=== PATIENT | female | born 1970 | race African-American/Black ===

== ENCOUNTER 2016-10-30 01:35 | Emergency (ER) | payer OTHER ==
--- NOTE | ~2016-10-30 | CR229 ---
[facility] A Service of [facility] & [facility] RADIOLOGY TEXT RESULTS PATIENT: DMITRIY VILLEGAS LOCATION: [facility] : 68 UNIT #: [id number] AGE: [address]: Ciara Ramirez APRN SEX: F ORDER DR: [id number] [facility] [address] [place], [place] [address] [id number] E MR#: [id number] Acc #: [id number] NAME: DMITRIY VILLEGAS : 1970 SEX: F STUDY DATE/TIME: 10/30/2016 6:20 UNIT: [facility] ROOM: STUDY DESCRIPTION: CR Shoulder Min 2 View Lt Attending Physician: Ciara Ramirez A.P.R.N. Ordering Physician: Ciara Ramirez A.P.R.N. Primary Care Physician: Eliel Mason M.D. MEDICAL IMAGING REPORT This report is preliminary unless electronic signature is present EXAM Left shoulder, 3 views. INDICATIONS Shoulder pain today. COMPARISON No comparisons. FINDINGS No fracture or dislocation. There is some mild narrowing of the AC joint. The glenohumeral joint is intact. IMPRESSION Mild narrowing of the AC joint. Otherwise, unremarkable. Dictated by... Kade Damon M.D. THIS IS AN ELECTRONICALLY VERIFIED REPORT Kade Damon M.D. at 10/30/2016 3:56 PM BUD/yuri TD: 10/30/2016 15:34 JOB #: [id number] MEDICAL IMAGING REPORT Page 1 of 1 COPY
--- NOTE | ~2016-10-30 | CR141 ---
[facility] A Service of [facility] & [facility] RADIOLOGY TEXT RESULTS PATIENT: DMITRIY VILLEGAS LOCATION: [facility] : 68 UNIT #: [id number] AGE: [address]: Ciara Ramirez APRN SEX: F ORDER DR: [id number] [facility] [address] [place], [place] [address] [id number] E MR#: [id number] Acc #: [id number] NAME: DMITRIY VILLEGAS : 1970 SEX: F STUDY DATE/TIME: 10/30/2016 6:17 UNIT: [facility] ROOM: STUDY DESCRIPTION: CR Hand Min 3 Views Lt Attending Physician: Ciara Ramirez A.P.R.N. Ordering Physician: Ciara Ramirez A.P.R.N. Primary Care Physician: Eliel Mason M.D. MEDICAL IMAGING REPORT This report is preliminary unless electronic signature is present EXAM Left hand 3 views INDICATION Left hand pain today. FINDINGS There is no fracture or dislocation. Joint spaces are preserved. IMPRESSION Negative. Dictated by... Kade Damon M.D. THIS IS AN ELECTRONICALLY VERIFIED REPORT Kade Damon M.D. at 10/30/2016 3:56 PM BUD/corbin TD: 10/30/2016 15:20 JOB #: [id number] MEDICAL IMAGING REPORT Page 1 of 1 COPY
--- NOTE | ~2016-10-30 | CR93 ---
[facility] A Service of [facility] & [facility] RADIOLOGY TEXT RESULTS PATIENT: DMITRIY VILLEGAS LOCATION: [facility] : 68 UNIT #: [id number] AGE: [address]: Ciara Ramirez APRN SEX: F ORDER DR: [id number] [facility] [address] [place], [place] [address] [id number] E MR#: [id number] Acc #: [id number] NAME: DMITRIY VILLEGAS : 1970 SEX: F STUDY DATE/TIME: 10/30/2016 6:18 UNIT: [facility] ROOM: STUDY DESCRIPTION: CR Elbow Min 3 Views Lt Attending Physician: Ciara Ramirez A.P.R.N. Ordering Physician: Ciara Ramirez A.P.R.N. Primary Care Physician: Eliel Mason M.D. MEDICAL IMAGING REPORT This report is preliminary unless electronic signature is present EXAM Left elbow, 3 views. INDICATIONS Elbow pain today. COMPARISON No comparisons. FINDINGS There is no joint effusion. There is no evidence for fracture or dislocation. IMPRESSION Negative. Dictated by... Kade Damon M.D. THIS IS AN ELECTRONICALLY VERIFIED REPORT Kade Damon M.D. at 10/30/2016 3:56 PM BUD/yuri TD: 10/30/2016 15:27 JOB #: [id number] MEDICAL IMAGING REPORT Page 1 of 1 COPY
--- NOTE | ~2016-10-30 | CR132 ---
[facility] A Service of [facility] & [facility] RADIOLOGY TEXT RESULTS PATIENT: DMITRIY VILLEGAS LOCATION: [facility] : 68 UNIT #: [id number] AGE: [address]: Ciara Ramirez APRN SEX: F ORDER DR: [id number] [facility] [address] [place], [place] [address] [id number] E MR#: [id number] Acc #: [id number] NAME: DMITRIY VILLEGAS : 1970 SEX: F STUDY DATE/TIME: 10/30/2016 6:25 UNIT: [facility] ROOM: STUDY DESCRIPTION: CR Forearm 2 View Lt Attending Physician: Ciara Ramirez A.P.R.N. Ordering Physician: Ciara Ramirez A.P.R.N. Primary Care Physician: Eliel Mason M.D. MEDICAL IMAGING REPORT This report is preliminary unless electronic signature is present EXAM Left forearm, 2 views. INDICATIONS Forearm pain today. COMPARISON No comparisons. FINDINGS No fracture or malalignment. IMPRESSION Negative. Dictated by... Kade Damon M.D. THIS IS AN ELECTRONICALLY VERIFIED REPORT Kade Damon M.D. at 10/30/2016 3:56 PM BUD/yuri TD: 10/30/2016 15:33 JOB #: [id number] MEDICAL IMAGING REPORT Page 1 of 1 COPY
[~2016-10-30 01:35] MED LIST: ABILIFY PO; ALBUTEROL17 GM INH; ALLERGY10 MG PO; AMBIEN PO; ANASTROZOLE1 MG PO; ASPIRINEC PO; ATARAX PO; ATRAC-TAIN142 GM EXT; AUGMENTIN PO; AUGMENTIN875 MG PO; BACTROBAN22 GM TP; CELEXA PO; CITALOPRAM HBR40 MG PO; CLARITIN D PO; COLACE PO; COLACE50 MG PO; COMPAZINE10 M1 PO; DARVOCET-N 1001 TAB; DEPRESSION MED PO; DEXAMETHASONE4 MG PO; DIAZEPAM; DIAZEPAM PO; DOXEPIN HCL25 MG PO; EC-NAPROSYN500 MG PO; FELDENE20 MG PO; FERRO-TIME325 MG PO; FIBER TABLETS; FLEXERIL PO; FLEXERIL10 M1 PO; FLEXERIL10 MG PO; FUROSEMIDE40 MG PO; IBUPROFEN PO; IRON1 TAB PO; KEFLEX PO; KLONOPIN PO; LASIX PO; LASIX20 MG PO; LEVAQUIN PO; LEXAPRO PO; LOPRESSOR PO; LYRICA100 MG PO; MED; MEDROL PO; METFORMIN HCL500 M1 PO; MUCINEX; MUCINEX DM1 TAB.SR . PO; NAPROXEN; NEURONTIN PO; NEURONTIN300 MG PO; NORCO 10/325 TA1 TAB PO; OMEPRAZOLE20 M2 PO; OXYCODONE; PERCOCET 5-3251 TAB PO; PERCOCET 51 UDTAB 5/ PO; PERCOCET5/325 PO; PHENERGAN PO; POTASSIUM; POTASSIUM CHLO10 ME1 PO; PRILOSEC PO; PRILOSEC20 MG PO; REGLAN PO; ROBAXIN PO; SARNA EXT; SEROQUEL PO; SIMVASTATIN20 MG PO; SWISH AND SWALLOW; TUSSIONEX PENN473 ML PO; ULTRAM PO; VALTREX PO; VICODIN 5/500 T1 TAB PO; VOLTAREN75 MG PO; WELLBUTRIN PO; WELLBUTRIN XL PO; ZANTAC PO; ZESTRIL40 MG PO; ZITHROMAX PO; ZOCOR20 MG PO; [UNRECOGNIZED DRUG - OTHER]; [UNRECOGNIZED DRUG - OTHER] OT; [UNRECOGNIZED DRUG - OTHER] PO
== END 2016-10-30 07:15 | disposition home or self-care (01) ==
LOC: CED 01:35
DX: S46.912A Strain of unspecified muscle, fascia and tendon at shoulder and upper arm level, left arm, initial encounter (principal); S63.502A Unspecified sprain of left wrist, initial encounter; F17.210 Nicotine dependence, cigarettes, uncomplicated; J45.909 Unspecified asthma, uncomplicated; J44.9 Chronic obstructive pulmonary disease, unspecified; K21.9 Gastro-esophageal reflux disease without esophagitis; F32.9 Major depressive disorder, single episode, unspecified; F41.9 Anxiety disorder, unspecified; Z88.8 Allergy status to other drugs, medicaments and biological substances; Z91.040 Latex allergy status; Z91.030 Bee allergy status; Z91.038 Other insect allergy status; Y04.0XXA Assault by unarmed brawl or fight, initial encounter; Y92.009 Unspecified place in unspecified non-institutional (private) residence as the place of occurrence of the external cause; Y07.499 Other family member, perpetrator of maltreatment and neglect
CPT/HCPCS: 29125; 73030; 73080; 73090; 73130; 99284

== ENCOUNTER 2017-01-04 03:00 | Observation (INO) | payer MEDICARE, OTHER ==
[~2017-01-04] VITALS: Ht 160 cm; Wt 123.4 kg
--- NOTE | ~2017-01-04 | XA198 ---
[facility] A Service of [facility] RADIOLOGY TEXT RESULTS PATIENT: DMITRIY VILLEGAS LOCATION: A : 68 UNIT #: [id number] AGE: [address]: Anabela Villarreal MD SEX: F ORDER DR: [id number] [address] [address] [id number] I MR#: [id number] Acc #: [id number] NAME: DMITRIY VILLEGAS. : 1970 SEX: F STUDY DATE/TIME: 01/05/2017 10:45 UNIT: [facility] ROOM: [facility] STUDY DESCRIPTION: XA Spinal Puncture Attending Physician: Anabela Villarreal M.D. Ordering Physician: Anabela Villarreal M.D. Primary Care Physician: Eliel Mason M.D. MEDICAL IMAGING REPORT This report is preliminary unless electronic signature is present PROCEDURE Fluoroscopically guided lumbar puncture INDICATIONS Headaches. The fluoro time was 0.6 minutes. The reference air kerma is 87 mg. The risks, benefits and alternatives of the procedure were discussed with the patient, informed consent was obtained. Procedure room time-out was performed, confirming correct patient and procedure. All elements of maximum sterile barrier technique utilized, according to guidelines appropriate for the procedure. TECHNIQUE/FINDINGS Skin overlying the lower lumbar spine was prepped and draped usual sterile fashion with Betadine and 1% lidocaine utilized to anesthetize the skin and underlying subcutaneous tissues. Next, under fluoroscopic guidance, a 20-gauge needle was advanced into the subarachnoid space at the L2 level. 12 mL of clear CSF was collected and sent to the lab. The needle was removed and a sterile dressing was applied. No immediate complications. IMPRESSION Technically successful fluoroscopically guided lumbar puncture. Dictated by... Kade Damon M.D. THIS IS AN ELECTRONICALLY VERIFIED REPORT Kade Damon M.D. at 01/07/2017 4:02 PM ARS/psc [facility] A Service of [facility] RADIOLOGY TEXT RESULTS PATIENT: DMITRIY VILLEGAS LOCATION: [facility] 217-01 : 68 UNIT #: [id number] AGE: [address]: Anabela Villarreal MD SEX: F ORDER DR: TD: 01/06/2017 02:42 JOB #: [id number] MEDICAL IMAGING REPORT Page 1 of 1 COPY
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
--- NOTE | ~2017-01-04 | CT71 ---
[facility] A Service of [facility] RADIOLOGY TEXT RESULTS PATIENT: DMITRIY VILLEGAS LOCATION: [facility] : 68 UNIT #: [id number] AGE: [address]: Anabela Villarreal MD SEX: F ORDER DR: [id number] [facility] [address] [place], [place] [address] [id number] I MR#: [id number] Acc #: [id number] NAME: DMITRIY VILLEGAS : 1970 SEX: F STUDY DATE/TIME: 01/04/2017 5:33 UNIT: [facility] ROOM: [facility] STUDY DESCRIPTION: CT Head Wo Contrast Attending Physician: Anabela Villarreal M.D. Ordering Physician: Heriberto Beatty D.O. Primary Care Physician: Eliel Mason M.D. MEDICAL IMAGING REPORT This report is preliminary unless electronic signature is present EXAM CT head without contrast. INDICATIONS Headache today. PROCEDURE Unenhanced CT of the head. This CT exam was performed with one or more of the following radiation dose reduction techniques: automatic exposure control, adjustment of mA and/or kV according to patient size, and iterative reconstruction. COMPARISON 04/23/2011 FINDINGS No acute hemorrhage, abnormal mass effect, extraaxial fluid collection, or hydrocephalus. No depressed calvarial fracture. Paranasal sinuses and mastoid air cells are clear. IMPRESSION No acute intracranial findings. Dictated by... Livan Daugherty M.D. THIS IS AN ELECTRONICALLY VERIFIED REPORT Livan Daugehrty M.D. at 01/04/2017 9:52 PM EED/odalys TD: 01/04/2017 13:52 JOB #: [id number] [facility] A Service [facility] RADIOLOGY TEXT RESULTS PATIENT: DMITRIY VILLEGAS LOCATION: [facility] : 68 UNIT #: [id number] AGE: [address]: Anabela Villarreal MD SEX: F ORDER DR: MEDICAL IMAGING REPORT Page 1 of 1 COPY
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
--- NOTE | ~2017-01-04 | BMI ---
[facility] Nutrition Therapy DATE: 01/05/17 Patient: DMITRIY VILLEGAS Physician: JENIFER Address: [address] Room/Bed: [address] [place] [address], Zip: [place] [address] Admit Date: 01/04/17 Date of : [birth year] Height: 5 3 Weight: 272 123.37 HIGH BMI NOTE: DX: 46 Y.O. FEMALE ADMITTED FOR HEADACHE ANTHROPOMETRICS: 5'3", WT: 271# (123 KG), BMI: 48.0 DIET: CC+HH RECOMMENDATIONS: 1. CONTINUE CURRENT DIET ORDER ABOVE TO PROMOTE GRADUAL WEIGHT LOSS TOWARDS HEALTHY BMI (19.0-25.0) OR +/-10%IBW RD WILL F/U PER PROTOCOL Respectfully, JAMIE RAHMAN MS, RD, LD [facility] Nutrition[facility] cc: client file
[2017-01-04 05:26] LABS: BASOPHIL% 0.6 % (0-2.5); EOSINOPHIL# 0.1 X10e3 (0-0.7); EOSINOPHIL% 1.6 % (0.0-7.0); HEMATOCRIT 41.7 % (35.0-45.0); HEMOGLOBIN 13.5 gm/dL (12.0-16.0); LYMPHOCYTE# 4.2 X10e3 (1.0-3.5); LYMPHOCYTE% 54.6 % (17.0-45.0); MEAN CELL VOLUME 81.4 FL (83-96); MEAN CORPUSCULAR HEMOGLOBIN 26.4 PG (28-34); MEAN CORPUSCULAR HGB CONC 32.5 g/dL (30-36); MEAN PLATELET VOLUME 7.5 FL (6.5-11.5); MONOCYTE# 0.5 X10e3 (0-1.0); MONOCYTE% 6.8 % (3.0-12.0); NEUTROPHIL# 2.8 X10e3 (1.5-7.1); NEUTROPHIL% 36.4 % (40-75); PLATELET COUNT 243 X10e3 (140-420); RED BLOOD COUNT 5.12 X10e (3.90-5.30); RED CELL DISTRIBUTION WIDTH 14.7 % (11.0-15.5); WHITE BLOOD COUNT 7.7 X10e3 (4.0-10.5)
[2017-01-04 05:30] LABS: DIFF IND YES
[2017-01-04 05:45] LABS: PARTIAL THROMBOPLASTIN TIME 25.5 SECONDS (23.5-31.3); PROTHROMBIN TIME (PATIENT) 10.6 SECONDS (10.0-11.7)
[2017-01-04 06:01] LABS: PLATELET ESTIMATE NORMAL (NORMAL); RBC NORMAL YES
[2017-01-04 06:09] LABS: CREATININE SERUM 0.8 mg/dL (0.6-1.4); GLOM FILT RATE Estimated 101.8 mL/min (>60); POTASSIUM 4.2 mmol/L (3.5-5.1)
[2017-01-04 06:27] LABS: URINE SOURCE CLEAN CATCH
[2017-01-04 06:33] LABS: URINE APPEARANCE CLEAR; URINE BILIRUBIN NEG (NEG); URINE BLOOD NEG (NEG); URINE COLOR YELLOW; URINE GLUCOSE NEG (NEG); URINE KETONE NEG (NEG); URINE LEUKOCYTE ESTERASE NEG (NEG); URINE NITRATE NEG (NEG); URINE PROTEIN NEG (NEG); URINE SPECIFIC GRAVITY 1.024 (1.003-1.035); URINE UROBILINOGEN 0.2 MG/DL (NEG)
[2017-01-04 06:36] LABS: CULTURE INDICATED? NO
[2017-01-04] MEDS ORDERED: GEODAN PO (09:10)
[2017-01-04] MEDS ORDERED: PRILOSEC PO (09:10)
[2017-01-04] MEDS ORDERED: ZYRTEC10 M2 PO (09:11)
[2017-01-04] MEDS ORDERED: CITALOPRAM HBR40 MG PO (09:11)
[2017-01-04] MEDS ORDERED: ZANAFLEX4 M1 PO (09:11)
[2017-01-04] MEDS ORDERED: DOXEPIN HCL100 M1 PO (09:13)
[2017-01-04] MEDS ORDERED: CALCIUM 600 +1 EA16 PO (09:13)
[2017-01-04] MEDS ORDERED: METFORMIN PO ×2 (09:14→09:33)
[2017-01-04] MEDS ORDERED: SINGULAIR PO (09:15)
[2017-01-04] MEDS ORDERED: PATADAY2.5 ML OU (09:15)
[2017-01-04] MEDS ORDERED: ALBUTEROL17 GM INH (09:16)
[2017-01-04] MEDS ORDERED: TOPAMAX PO (09:17)
[2017-01-04] MEDS ORDERED: AZELASTINE137 MCG/0. (09:20)
[2017-01-04] MEDS ORDERED: CALCIUM 600 +1 EAC2 PO (09:25)
[2017-01-05 05:29] LABS: HEMATOCRIT 41.1 % (35.0-45.0); HEMOGLOBIN 13.2 gm/dL (12.0-16.0); MEAN CELL VOLUME 81.7 FL (83-96); MEAN CORPUSCULAR HEMOGLOBIN 26.3 PG (28-34); MEAN CORPUSCULAR HGB CONC 32.2 g/dL (30-36); MEAN PLATELET VOLUME 7.9 FL (6.5-11.5); RED BLOOD COUNT 5.03 X10e (3.90-5.30); RED CELL DISTRIBUTION WIDTH 14.7 % (11.0-15.5); WHITE BLOOD COUNT 10.3 X10e3 (4.0-10.5)
[2017-01-05 13:17] LABS: GLUCOSE-CSF 73 mg/dL (50-80); PROTEIN-CSF 26 mg/dL (15-45)
[2017-01-05 15:52] LABS: CSF APPEARANCE CLEAR (CLEAR); CSF RBC 0 CMM (0); CSF TUBE NUMBER 3; CSF WBC 3 CMM (0-8); CSF XANTHACHROMIC NO
[2017-01-05 15:53] LABS: CSF LYMPHOCYTE 94 %; CSF NEUTROPHIL 6 %
[2017-01-05] MEDS ORDERED: FIORICET 50-301 EACH PO (17:24)
== END 2017-01-05 18:52 | disposition home or self-care (01) ==
LOC: CED 03:00 → CEDOF 07:00 → C2A 07:00 → CEDOF 07:26 → CED 07:26 → CEDOF 13:21 → C2A 13:21
PROVIDERS: Emergency Medicine; Internal Medicine
PROC: 009U3ZX Drainage of Spinal Canal, Percutaneous Approach, Diagnostic (ICD-10-PCS; principal; 2017-01-05)
DX: G43.909 Migraine, unspecified, not intractable, without status migrainosus (principal); S16.1XXA Strain of muscle, fascia and tendon at neck level, initial encounter; G47.33 Obstructive sleep apnea (adult) (pediatric); M54.2 Cervicalgia; I10 Essential (primary) hypertension; E11.42 Type 2 diabetes mellitus with diabetic polyneuropathy; E78.5 Hyperlipidemia, unspecified; J45.909 Unspecified asthma, uncomplicated; D50.9 Iron deficiency anemia, unspecified; F32.9 Major depressive disorder, single episode, unspecified; Z85.3 Personal history of malignant neoplasm of breast; Z90.13 Acquired absence of bilateral breasts and nipples; Z86.718 Personal history of other venous thrombosis and embolism; M54.5 Low back pain; G89.29 Other chronic pain; Z79.899 Other long term (current) drug therapy; Z79.51 Long term (current) use of inhaled steroids; F17.210 Nicotine dependence, cigarettes, uncomplicated; Z91.19 Patient's noncompliance with other medical treatment and regimen
CPT/HCPCS: 36415; 70450; 77003; 80048; 81003; 82945; 82947; 84157; 85025; 85027; 85610; 85730; 87070; 87205; 89051; 94760; 96361; 96372; 96374; 96375; 96376; 99285; C1713; G0378; J1200; J1650; J1815; J1885; J2270; J2765; J2920

== ENCOUNTER 2017-03-02 05:25 | Emergency (ER) | payer MEDICARE, OTHER ==
[~2017-03-02] VITALS: Ht 160 cm; Wt 122.5 kg
[~2017-03-02 05:25] MED LIST changes: +AZELASTINE137 MCG/0.; +CALCIUM 600 +1 EA16 PO; +CALCIUM 600 +1 EAC2 PO; +DOXEPIN HCL100 M1 PO; +FIORICET 50-301 EACH PO; +GEODAN PO; +METFORMIN PO; +PATADAY2.5 ML OU; +SINGULAIR PO; +TOPAMAX PO; +ZANAFLEX4 M1 PO; +ZYRTEC10 M2 PO
[2017-03-02 06:09] LABS: URINE APPEARANCE CLOUDY; URINE BILIRUBIN NEG (NEG); URINE BLOOD 3+ (NEG); URINE COLOR YELLOW; URINE GLUCOSE NEG (NEG); URINE KETONE NEG (NEG); URINE LEUKOCYTE ESTERASE 2+ (NEG); URINE NITRATE NEG (NEG); URINE PROTEIN 2+ (NEG); URINE SPECIFIC GRAVITY 1.024 (1.003-1.035)
[2017-03-02 06:11] LABS: CULTURE INDICATED? YES; URBCS1 AUWI INNUM /[HPF] (0-2); URINE BACTERIA AUWI 2+ (NEGATIVE); URINE SQUAMOUS EPITHELIAL CELL OCC /[HPF]; UWBCS1 AUWI 50-100 (0-5)
== END 2017-03-02 06:46 | disposition home or self-care (01) ==
LOC: CED 05:25
PROVIDERS: Nurse Practitioner Family
DX: N39.0 Urinary tract infection, site not specified (principal); I10 Essential (primary) hypertension; K21.9 Gastro-esophageal reflux disease without esophagitis; F32.9 Major depressive disorder, single episode, unspecified; G43.909 Migraine, unspecified, not intractable, without status migrainosus; J45.909 Unspecified asthma, uncomplicated; J44.9 Chronic obstructive pulmonary disease, unspecified; E78.5 Hyperlipidemia, unspecified; F17.210 Nicotine dependence, cigarettes, uncomplicated; Z88.8 Allergy status to other drugs, medicaments and biological substances
CPT/HCPCS: 81003; 87086; 87088; 87186; 99283